=== PATIENT | male | born 1960 | race Caucasian/White ===

== ENCOUNTER 2025-02-03 23:25 | Emergency (ER) | payer MEDICARE, MEDICAID, SELFPAY ==
[2025-02-03 23:31] VITALS: BP 124/68; PULSE 70; TEMP 36.8; O2SAT 98; BMI 24.8
[2025-02-04 00:20] VITALS: BP 142/76; PULSE 63; O2SAT 98
[2025-02-04] MEDS: KETOROLAC TROMETHAMINE 30 MG/ML VIAL IM (00:22)
--- NOTE | 2025-02-04 00:52 | ED_ITS ---
HPI HPI - General Adult General Chief complaint: Fall Stated complaint: FALL Time Seen by Provider: 02/03/25 23:46 Source: patient Mode of arrival: walk-in Limitations: no limitations Related Data Home Medications ?Medication ?Instructions ?Recorded ?Confirmed albuterol sulfate 90 mcg/actuation inhalation 02/03/25 aerosol inhaler alprazolam 0.5 mg tablet mg 02/03/25 naproxen 500 mg tablet mg 02/03/25 oxycodone-acetaminophen 5 mg-325 tab 02/03/25 mg tablet pramipexole 0.25 mg tablet mg 02/03/25 pregabalin 75 mg capsule mg 02/03/25 ropinirole 3 mg tablet mg 02/03/25 Previous Rx's ?Medication ?Instructions ?Recorded cyclobenzaprine 10 mg tablet 10 mg PO Q8H #12 tabs 02/04/25 Allergies Allergy/AdvReac Type Severity Reaction Status Date / Time ammonia Allergy Anaphylaxis Verified 02/03/25 23:36 cefaclor (From Ceclor) Allergy Unknown Verified 02/03/25 23:36 Penicillins Allergy Unknown Verified 02/03/25 23:36 Opioid HPI Opioid Management Most Recent Opioid Data: Last Pain Scale 10 02/04/25 00:22 02/04/25 Last MAR Pain Assessment 02/04/25 00:22 PFSH PFSH Social History Little interest or pleasure in doing things: not at all Feeling down, depressed, or hopeless: not at all Exam Constitutional Vital Signs, click to edit/add: Last Vital Signs Temp 98.3 F 02/03/25 23:31 Pulse 63 02/04/25 00:20 Resp 19 02/04/25 00:20 BP 142/76 H 02/04/25 00:20 Pulse Ox 98 02/04/25 00:20 Course Course Hospital Course: The patient is a 64-year-old male who presented to the emergency department after he had a mechanical fall on the sidewalk landing forward onto his chest and face. The patient had imaging of his chest, face, and brain. He does have evidence of a nasal bone fracture that is not going to require any acute intervention at this time. Patient can use Tylenol to manage his discomfort and should be using it every 6 hours routinely. I will also prescribe the patient a small amount of muscle relaxer so that he does not feel a lot of pain. Reevaluation(s) Reevaluation #1: I personally updated the patient about all of his results, disposition come and discharge planning. He should go to the pharmacy to pick his prescriptions up. Patient at this time appears nontoxic and in no acute distress. Time: 01:02 Vital Signs Vital signs: Vital Signs Temperature 98.3 F 02/03/25 23:31 Pulse Rate 70 02/03/25 23:31 Respiratory Rate 16 02/03/25 23:31 Blood Pressure 124/68 02/03/25 23:31 Pulse Oximetry 98 02/03/25 23:31 Temperature 98.3 F 02/03/25 23:31 Pulse Rate 63 02/04/25 00:20 Respiratory Rate 19 02/04/25 00:20 Blood Pressure 142/76 H 02/04/25 00:20 Pulse Oximetry 98 02/04/25 00:20 Medical Decision Making Imaging Data Chest x-ray: Attestation: I have reviewed the pertinent imaging results. Radiologist's impression: Chest x-ray Impression: 1. Normal heart size 2. No pulmonary contusion, pleural effusion or pneumothorax 3. Intact left shoulder arthroscopy components 4. Intact cervical spine fusion components 5. No acute fracture or dislocation 6. No acute foreign body CT brain and facial bones Impression: 1. Mild generalized brain volume loss with no features to suggest acute intracranial hemorrhage, mass, infarct or edema. 2. No acute skull fracture. 3. Mild mucosal thickening in the paranasal sinuses. 4. Very small fracture noted affecting the anterior margin of the nasal spine a t the midline. 5. The remainder of all facial bones appear intact. 6. Intact right and left TMJ. 7. Intact mandible. 8. Intact globes. 9. No acute foreign body. Discharge Plan Discharge Chief Complaint: Fall Clinical Impression: Contusion of knee with skin surface intact, Jaw pain Fall Qualifiers: Encounter type: initial encounter Qualified Code(s): W19.XXXA - Unspecified fall, initial encounter Closed fracture nasal bone Qualifiers: Encounter type: initial encounter Qualified Code(s): S02.2XXA - Fracture of nasal bones, initial encounter for closed fracture Patient Disposition: Home, Self-Care Time of Disposition Decision: 01:04 Condition: Good Mode of Transportation: Private Vehicle Prescriptions / Home Meds: New cyclobenzaprine 10 mg tablet 10 mg PO Q8H Qty: 12 0RF No Action ropinirole 3 mg tablet oxycodone-acetaminophen 5-325 mg tablet alprazolam 0.5 mg tablet pramipexole 0.25 mg tablet albuterol sulfate 90 mcg/actuation HFA aerosol inhaler INHALATION naproxen 500 mg tablet pregabalin 75 mg capsule Print Language: Pakistani Instructions: Nasal Fracture (ED), Fall Prevention for Older Adults (ED), Contusion in Adults (ED) Referrals: Physician,Non-Staff, MD [Primary Care Provider] - 1 week Discharge Date/Time: 02/04/25 01:13
--- NOTE | 2025-02-04 01:11 | PC.NURSE ---
i gave this patient verbal and written discharge orders along with 1 e-script and this patient voices yes to understanding these. at time of discharge this patient voices no concerns and shows no signs of distress
--- NOTE | 2025-02-05 01:49 | ED_ITS ---
HPI HPI - Fall General Chief Complaint: Fall Stated Complaint: FALL Time Seen by Provider: 02/03/25 23:46 Source: patient Mode of arrival: walk-in Limitations: no limitations History of Present Illness HPI Narrative: The patient is a 64-year-old male who presents to the emergency department after a mechanical trip and fall. Patient states he was walking and he tripped on a curb. He states he fell forward. He states he landed on both of his knees and then fell flat on his face. Patient is complaining of nasal pain. He is complaining of right jaw pain. Patient is complaining of some neck and shoulder tenderness. Patient stated that this occurred at 10:00 this morning. He delayed getting evaluated and only came in because his friends were urging him because he was continuing to complain. Patient did not take any Tylenol or Motrin. Patient does not take any blood thinners routinely. His discomfort is moderate in severity. Unknown what makes it worse. Nothing makes it better. No radiation of the pain. Related Data Home Medications ?Medication ?Instructions ?Recorded ?Confirmed albuterol sulfate 90 mcg/actuation inhalation 02/03/25 aerosol inhaler alprazolam 0.5 mg tablet mg 02/03/25 naproxen 500 mg tablet mg 02/03/25 oxycodone-acetaminophen 5 mg-325 tab 02/03/25 mg tablet pramipexole 0.25 mg tablet mg 02/03/25 pregabalin 75 mg capsule mg 02/03/25 ropinirole 3 mg tablet mg 02/03/25 Previous Rx's ?Medication ?Instructions ?Recorded cyclobenzaprine 10 mg tablet 10 mg PO Q8H #12 tabs 02/04/25 Allergies Allergy/AdvReac Type Severity Reaction Status Date / Time ammonia Allergy Anaphylaxis Verified 02/03/25 23:36 cefaclor (From Ceclor) Allergy Unknown Verified 02/03/25 23:36 Penicillins Allergy Unknown Verified 02/03/25 23:36 Opioid HPI Opioid Management Most Recent Pain and Opioid Data: Last Pain Scale 10 02/04/25 00:22 02/04/25 Last MAR Pain Assessment 02/04/25 00:22 Review of Systems ROS Narrative 10 Systems were reviewed, and unless not ed in the HPI, all other systems are reviewed, unremarkable, or noncontributory. PFSH PFSH Social History Little interest or pleasure in doing things: not at all Feeling down, depressed, or hopeless: not at all Exam Narrative Exam Narrative: Prior to examining the patient, I have washed with hospital approved and provided Antiseptic Hand Grinder Set Up Operator Surface and have also applied gloves.? Prior to touching the patient, I asked for consent to examine the patient.? General: Alert and oriented, well nourished, mild distress. Eye: PERRL, EOMI, normal conjunctiva. No vertical or horizontal nystagmus patient's pupils are 4 mm and reactive. HENT: Normocephalic, normal hearing, moist oral mucosa, no scleral icterus, no sinus tenderness. Pain at the proximal portions of the patient's nose. No active bleeding. No gross deformity. Neck: Supple, non-tender, no carotid bruits, no JVD, no lymphadenopathy. No midline point tenderness. Lungs: Clear to auscultation and percussion, non-labored respiration. No rhonchi, rales, wheezing Heart: Normal rate, regular rhythm, no murmur, gallop or edema. Abdomen: Soft, non-tender, non-distended, normal bowel sounds, no masses. Musculoskeletal: Normal range of motion and strength, no tenderness or swelling. Skin: Skin is warm, dry and pink, no rashes or lesions. Mild ecchymosis to the bilateral knees. There is no facial abrasions or contusions. Neurologic: Awake, alert, and oriented X3, CN II-XII intact. Psychiatric: Cooperative, appropriate mood and affect.? Following the conclusion of the examination, I have washed my hands thoroughly after removing examination gloves. Constitutional Vital Signs, click to edit/add: Last Vital Signs Temp 98.3 F 02/03/25 23:31 Pulse 63 02/04/25 00:20 Resp 19 02/04/25 00:20 BP 142/76 H 02/04/25 00:20 Pulse Ox 98 02/04/25 00:20 Course Course Hospital Course: The patient is a 64-year-old male who presented to the emergency department after he had a mechanical fall on the sidewalk landing forward onto his chest and face. The patient had imaging of his chest, face, and brain. He does have evidence of a nasal bone fracture that is not going to require any acute intervention at this time. Patient can use Tylenol to manage his discomfort and should be using it every 6 hours routinely. I will also prescribe the patient a small amount of muscle relaxer so that he does not feel a lot of pain. Vital Signs Vital signs: Vital Signs Temperature 98.3 F 02/03/25 23:31 Pulse Rate 70 02/03/25 23:31 Respiratory Rate 16 02/03/25 23:31 Blood Pressure 124/68 02/03/25 23:31 Pulse Oximetry 98 02/03/25 23:31 Temperature 98.3 F 02/03/25 23:31 Pulse Rate 63 02/04/25 00:20 Respiratory Rate 19 02/04/25 00:20 Blood Pressure 142/76 H 02/04/25 00:20 Pulse Oximetry 98 02/04/25 00:20 MDM - Fall MDM Narrative Medical decision making narrative: In summary the patient is a 64-year-old male who had a mechanical fall on a curb. He has a lot of facial pain. Patient received a CT scan which revealed that he is a mild nondisplaced fracture to the spine of the nose. Patient does not have any mass, bleed, midline shift in his brain. I did not x-ray the patient's knees because he was ambulatory after the incident occurred. Patient has no evidence of any concussion. There is no dislocation or injury of the extremities peripherally. Differential Diagnosis Differential diagnosis: Likely syncope, dislocation of shoulder region, fracture of wrist, compression fracture, concussion with loss of consciousness and concussion without loss of consciousness Medical Records Attestation: I reviewed the patient's medical records. Imaging Data CT scan - head: Radiologist's impression: No mass, bleed, midline shift ct face: Attestation: I have reviewed the pertinent imaging results. Radiologist's impression: Nondisplaced nasal bone fracture apparent. CT cervical spine: Attestation: I have reviewed the pertinent imaging results. Radiologist's impression: No evidence of fractures or subluxation. Discharge Plan Discharge Chief Complaint: Fall Clinical Impression: Contusion of knee with skin surface intact, Jaw pain Fall Qualifiers: Encounter type: initial encounter Qualified Code(s): W19.XXXA - Unspecified fall, initial encounter Closed fracture nasal bone Qualifiers: Encounter type: initial encounter Qualified Code(s): S02.2XXA - Fracture of nasal bones, initial encounter for closed fracture Patient Disposition: Home, Self-Care Time of Disposition Decision: 01:04 Condition: Good Mode of Transportation: Private Vehicle Prescriptions / Home Meds: New cyclobenzaprine 10 mg tablet 10 mg PO Q8H Qty: 12 0RF No Action ropinirole 3 mg tablet oxycodone-acetaminophen 5-325 mg tablet alprazolam 0.5 mg tablet pramipexole 0.25 mg tablet albuterol sulfate 90 mcg/actuation HFA aerosol inhaler INHALATION naproxen 500 mg tablet pregabalin 75 mg capsule Print Language: Latvian Instructions: Nasal Fracture (ED), Fall Prevention for Older Adults (ED), Contusion in Adults (ED) Referrals: Physician,Non-Staff, MD [Primary Care Provider] - 1 week Discharge Date/Time: 02/04/25 01:13
== END 2025-02-04 01:13 | disposition home or self-care (01) ==
PROVIDERS: Emergency Provider Emergency Medicine
DX: S02.2XXA Fracture of nasal bones, initial encounter for closed fracture (principal); S80.02XA Contusion of left knee, initial encounter; S80.01XA Contusion of right knee, initial encounter; R68.84 Jaw pain; W01.0XXA Fall on same level from slipping, tripping and stumbling without subsequent striking against object, initial encounter
CPT/HCPCS: 70450; 70486; 71046; 96372; 99284; J1885